=== PATIENT | male | born 1985 | race African-American/Black ===

== ENCOUNTER 2017-06-14 22:03 | Emergency (ER) | payer OTHER ==
[2017-06-14] MEDS ORDERED: HYDROcodone/Acetaminophen 10/325 mg Tablet ONE (22:25)
[2017-06-14] MEDS ORDERED: Amoxicillin/Potassium Clav 875 MG TAB ONE (22:26)
[2017-06-14] MEDS ORDERED: Ibuprofen 800 MG TAB ONE (22:26)
== END 2017-06-14 22:38 | disposition home or self-care (01) ==
LOC: NAV ERS 22:03
DX: H60.502 Unspecified acute noninfective otitis externa, left ear (principal)
CPT/HCPCS: 99282